=== PATIENT | female | born 1965 | race Caucasian/White ===

== ENCOUNTER 2022-04-28 21:17 | Emergency (ER) | payer OTHER, SELFPAY ==
[~2022-04-28] VITALS: Ht 167.6 cm; Wt 66.8 kg
[2022-04-28 21:18] VITALS: BP 92/62
== END 2022-04-29 02:22 | disposition left against medical advice (07) ==
LOC: M ED 21:17
DX: Z53.21 Procedure and treatment not carried out due to patient leaving prior to being seen by health care provider (principal)

== ENCOUNTER → 2022-06-10 | Outpatient (CLI) | payer OTHER | LOC: M LABSMTC 09:21 | PROVIDERS: ATTEND Anesthesiology | DX: Z11.52 Encounter for screening for COVID-19 (principal) ==